=== PATIENT | female | born 1965 | race Caucasian/White ===

== ENCOUNTER 2018-08-15 13:50 | Emergency (ER) | payer MEDICAID ==
[~2018-08-15] VITALS: Ht 152.4 cm; Wt 52.6 kg
[2018-08-15 13:56] VITALS: Ht 152.4 cm; Wt 52.6 kg
[2018-08-15 15:55] VITALS: BP 169/73
== END 2018-08-15 15:55 | disposition home or self-care (01) ==
LOC: ED 13:50
DX: K02.9 Dental caries, unspecified (principal); Z88.0 Allergy status to penicillin; Z87.440 Personal history of urinary (tract) infections
CPT/HCPCS: J1885